=== PATIENT | female | born 1985 ===

== ENCOUNTER 2021-09-19 11:18 | Emergency (ER) | payer SELFPAY ==
[~2021-09-19] VITALS: Ht 170.2 cm; Wt 83.9 kg
[2021-09-19 13:22] VITALS: BP 148/96
[2021-09-19] MEDS ORDERED: HYDR50CA PO (14:09)
[2021-09-19] MEDS ORDERED: LORazepam 0.5 MG TAB PO ONE (14:15)
== END 2021-09-19 15:12 | disposition home or self-care (01) ==
LOC: ER 11:18
DX: F41.0 Panic disorder [episodic paroxysmal anxiety] (principal); I10 Essential (primary) hypertension
CPT/HCPCS: 70450